=== PATIENT | female | born 1990 | race African-American/Black ===

== ENCOUNTER 2020-08-29 15:50 | Emergency (ER) | payer MEDICAID ==
[~2020-08-29] VITALS: Ht 167.6 cm; Wt 54.0 kg
[2020-08-29] MEDS ORDERED: FOLI-43 MT (18:59)
[2020-08-29] MEDS ORDERED: ZONI100C45 MT (19:00)
[2020-08-29] MEDS ORDERED: LAMO200T50 PO (19:00)
[2020-08-29 20:50] VITALS: BP 125/75
== END 2020-08-29 20:50 | disposition home or self-care (01) ==
LOC: ER 15:50
DX: Z76.0 Encounter for issue of repeat prescription (principal); G40.909 Epilepsy, unspecified, not intractable, without status epilepticus
CPT/HCPCS: 99283